=== PATIENT | male | born 1990 | race Caucasian/White ===

== ENCOUNTER 2017-05-25 19:13 | Emergency (ER) | payer OTHER ==
[~2017-05-25] VITALS: Ht 165.1 cm; Wt 82.0 kg
[2017-05-25 19:14] VITALS: BP 139/72; PULSE 93; RESP 16; TEMP 99.3; O2SAT 96
[2017-05-25] MEDS ORDERED: IBUP800T23 PO (20:29)
[2017-05-25] MEDS ORDERED: CYCL1TAB29 PO (20:29)
--- NOTE | 2017-05-25 20:29 | PD ---
HPI Chief Complaint: Back/ Neck Pain or Injury Time Seen by Provider: 20:17 Travel History International Travel<30 days: No Contact w/Intl Traveler<30days: No Traveled to known affect area: No History of Present Illness HPI Patient is a 27-year-old male presenting to emergency department evaluation of low back pain. Patient states he lifted an air conditioner at work on and felt his back pull, he was able to continue working, Saturday morning when he woke up his back was sore and upon awakening today it was tight and he is unable to stand up straight completely without pain. He denies any numbness or weakness in his lower extremities, saddle paresthesia, no incontinence. Patient has taken Tylenol once for the pain. Patient states his pain is a 6 out of 10 and this is sore and aching. PFSH Past Medical History Diabetes: Yes Patient Takes Glucophage: No Diminished Hearing: No Hypertension: Yes Past Surgical History Other Surgery: Yes (ON TESTICLES) Social History Alcohol Use: No Tobacco Use: No Substance Use: No Allergies-Medications (Allergen,Severity, Reaction): Coded Allergies: No Known Allergies (Unverified , 05/25/17) Review of Systems Except as stated in HPI: all other systems reviewed are Neg Musculoskeletal: Positive: Myalgias, Cramping Physical Exam Narrative GENERAL: Well-nourished, well-developed patient. SKIN: Focused skin assessment warm/dry. HEAD: Normocephalic. EYES: No scleral icterus. No injection or drainage. NECK: Supple, trachea midline. No JVD or lymphadenopathy. CARDIOVASCULAR: Regular rate and rhythm without murmurs, gallops, or rubs. RESPIRATORY: Breath sounds equal bilaterally. No accessory muscle use. GASTROINTESTINAL: Abdomen soft, non-tender, nondistended. MUSCULOSKELETAL: No cyanosis, or edema. Tenderness to palpation paraspinal musculature in the lumbar region bilaterally. 5 out of 5 muscle strength bilateral lower extremities. Patient is neurovascularly intact. No spinal tenderness or step-off noted. BACK: Nontender without obvious deformity. No CVA tenderness. Data Data Last Documented VS Vital Signs Date Time Temp Pulse Resp B/P (MAP) Pulse Ox O2 Delivery O2 Flow Rate FiO2 05/25/17 19:14 99.3 93 16 139/72 (94) 96 Nasal Cannula MDM Medical Decision Making Medical Screen Exam Complete: Yes Emergency Medical Condition: Yes Interpretation(s) Vital Signs Date Time Temp Pulse Resp B/P (MAP) Pulse Ox O2 Delivery O2 Flow Rate FiO2 05/25/17 19:14 99.3 93 16 139/72 (94) 96 Nasal Cannula Differential Diagnosis Sprain versus strain versus disc any pain versus spasm versus other Narrative Course Patient presented for evaluation of low back pain started on after lifting an air conditioner at work. Patient works at [employer], patient has no focal deficits on exam. Physical examination is most consistent with muscle strain and spasm. Patient will be discharged home with ibuprofen and Flexeril. He was encouraged to apply warm heat to affected area, continue range of motion exercises and avoid bed rest. He was encouraged follow-up with a primary doctor. He was advised that symptoms should resolve in a few days with or with out treatment. He was encouraged return to emergency department immediately for any new or worsening symptoms. Patient stable for discharge. Diagnosis Primary Impression: Lumbar strain Qualified Codes: S39.012A - Strain of muscle, fascia and tendon of lower back , initial encounter Additional Impression: Lumbar paraspinal muscle spasm Referrals: Primary Care Physician 1 week Patient Instructions: General Instructions, Muscle Spasm (ED), Muscle Strain ( ED) Additional Instructions: Follow-up with your primary doctor Alternate heat and ice to the affected area, continue range of motion exercises , avoid bed rest, avoid exacerbating activities. Take medications as directed Return to emergency department immediately for any new or worsening symptoms Med/Other Pt SpecificInfo: Prescription(s) given Scripts Cyclobenzaprine (Flexeril) 10 Mg Tab 10 MG PO TID Y for MUSCLE SPASM, #30 TAB 0 Refills Prov: Luz Marina Contreras 05/25/17 Ibuprofen (Ibuprofen) 800 Mg Tab 800 MG PO Q6HR Y for PAIN, #40 TAB 0 Refills Prov: Luz Marina Contreras 05/25/17 Disposition: 01 DISCHARGE HOME Condition: Stable Luz Marina Contreras May 25, 2017 20:29
== END 2017-05-25 20:58 | disposition home or self-care (01) ==
LOC: NEPD 19:13
DX: S39.012A Strain of muscle, fascia and tendon of lower back, initial encounter (principal); M62.830 Muscle spasm of back; X50.9XXA Other and unspecified overexertion or strenuous movements or postures, initial encounter; Y93.89 Activity, other specified
CPT/HCPCS: 99283